=== PATIENT | male | born 1945 | race Caucasian/White ===

== ENCOUNTER 2019-04-17 09:44 | Emergency (ER) | payer OTHER ==
[2019-04-17 09:54] VITALS: BP 143/83
--- NOTE | 2019-04-17 10:46 | UC ---
UC General HPI - HPI Summary HPI Summary: 33-year-old male comes in with a chief complaint of left buttock and leg pain. About 4-5 days. Primary the pain is in the left buttock. It radiates occasionally down the left leg and left thigh and sometimes all way down to the left foot. Denies any back pain weakness or numbness or difficulty controlling urine or bowels. Has been taking a single pill of naproxen believes it's 200 mg twice a day with little relief. Denies any specific trauma. - History of Current Complaint Chief Complaint: UCBackPain Stated Complaint: LEG PAIN Time Seen by Provider: 04/17/19 10:33 Pain Intensity: 9 - Allergy/Home Medications Allergies/Adverse Reactions: Allergies Allergy/AdvReac Type Severity Reaction Status Date / Time No Known Allergies Allergy Verified 04/17/19 09:54 Home Medications: Home Medications Acetaminophen/Diphenhydramine [Tylenol Pm Ex-Strength Caplet] 1 each PO DAILY PRN 04/17/19 [History Confirmed 04/17/19] Naproxen Sodium [Naproxen 220 mg] 220 mg PO BID PRN 04/17/19 [History Confirmed 04/17/19] PMH/Surg Hx/FS Hx/Imm Hx Previously Healthy: Yes - Surgical History Surgical History: Yes Surgery Procedure, Year, and Place: bilat knee replacement - Family History Known Family History: Positive: None - Social History Alcohol Use: Occasionally Substance Use Type: None Smoking Status (MU): Former Smoker When Did the Patient Quit Smoking/Using Tobacco: 1988 - Immunization History Most Recent Influenza Vaccination: [id number] Review of Systems All Other Systems Reviewed And Are Negative: Yes Constitutional: Positive: Negative Skin: Positive: Negative Eyes: Positive: Negative ENT: Positive: Negative Respiratory: Positive: Negative Cardiovascular: Positive: Negative Gastrointestinal: Positive: Negative Genitourinary: Positive: Negative Motor: Positive: Negative Neurovascular: Positive: Negative Musculoskeletal: Positive: Other: - SEE HPI Neurological: Positive: Negative Psychological: Positive: Negative Is Patient Immunocompromised?: No Physical Exam Triage Information Reviewed: Yes Appearance: Well-Appearing, No Pain Distress, Well-Nourished Vital Signs: Initial Vital Signs Temp 98.5 F 04/17/19 09:49 Pulse 86 04/17/19 09:49 Resp 15 04/17/19 09:49 BP 143/83 04/17/19 09:49 Pulse Ox 98 04/17/19 09:49 Vital Signs Reviewed: Yes Eye Exam: Normal Eyes: Positive: Conjunctiva Clear Neck: Positive: Supple Respiratory: Positive: No respiratory distress Musculoskeletal: Positive: Other: - No tenderness to palpation of the low back. Patient is tender to palpation in the left buttock over the sciatic distribution. Both legs have full range of motion and full strength to include plantarflexion and dorsiflexion of the feet and knee flexion extension and hip flexion. Hip flexion does not increase the pain. Normal sensation. Patellar reflexes 1+ bilaterally. Neurological: Positive: Alert Psychological: Positive: Age Appropriate Behavior Skin Exam: Normal Course/Dx - Course Course Of Treatment: No neurologic deficits found on examination or by history today. We'll treat with a higher dose of naproxen 500 mg twice a day and also lidocaine patches and ice to the area and stretching. Follow-up with sports medicine get reevaluated sooner if worse or any questions or concerns. - Diagnoses Provider Diagnosis: Left sided sciatica Discharge ED - Sign-Out/Discharge Documenting (check all that apply): Patient Departure All imaging exams completed and their final reports reviewed: No Studies - Discharge Plan Condition: Stable Disposition: HOME Prescriptions: Lidocaine PATCH 5%* [Lidoderm 5% Patch*] 2 patch TRANSDERM DAILY #20 patch Naproxen Sodium [Naproxen ER 500 MG TAB] 500 mg PO BID #30 tab Patient Education Materials: Sciatica (ED), Lower Back Exercises (ED) Referrals: [facility] [place] [facility] [Outside] Sports Medicine Athletic [facility] [Provider Group] Additional Instructions: FOLLOW UP WITH SPORTS MEDICINE. GET REEVALUATED SOONER IF NOT IMPROVED OR WORSE; PAIN, WEAKNESS, NUMBNESS, DIFFICULTY CONTROLLING BOWEL OR BLADDER OR ANY QUESTIONS OR CONCERNS. - Billing Disposition and Condition Condition: STABLE Disposition: Home
== END 2019-04-17 10:55 | disposition home or self-care (01) ==
LOC: UCEAST 09:44
DX: M54.32 Sciatica, left side (principal); Z87.891 Personal history of nicotine dependence; Z96.651 Presence of right artificial knee joint
CPT/HCPCS: 99202; G0463